=== PATIENT | male | born 1995 | race Caucasian/White ===

== ENCOUNTER 2016-10-02 18:01 | Emergency (ER) | payer OTHER ==
[2016-10-02] MEDS ORDERED: ONDANSETRON ODT 4 MG TABLET TL STA (18:40)
[2016-10-02] MEDS ORDERED: ONDANSETRON ODT 4 MG TABLET ONE (19:00)
[2016-10-02] MEDS ORDERED: ONDANSETRON ODT 4 MG Prepack 2 TL STA (19:30)
[2016-10-02] MEDS ORDERED: ONDANSETRON ODT 4 MG Prepack 2 TL ONE (19:37)
== END 2016-10-02 19:45 | disposition home or self-care (01) ==
DX: R11.2 Nausea with vomiting, unspecified (principal); F17.200 Nicotine dependence, unspecified, uncomplicated
CPT/HCPCS: 99283; Q0162

== ENCOUNTER 2017-08-14 20:04 | Emergency (ER) | payer OTHER ==
[2017-08-14 20:12] VITALS: BP 133/43
--- NOTE | 2017-08-14 20:59 | ED Physician Documentation ---
History of Present Illness - Stated complaint Stated Complaint: THUMB LAC - Chief complaint Chief Complaint: Laceration - History obtained from History obtained from: Patient (pt is here for evaluation of a laceration to his right thumb. he states that he cut it with a knife while opening a gift. states that he cleaned it with iodine at home.) Review of Systems Constitutional: denies: Fever, Chills Skin: reports: Laceration (s) Musculoskeletal: denies: Back pain, Extremity pain, Joint pain, Extremity swelling, Joint swelling Neurologic: denies: Numbness PD PAST MEDICAL HISTORY - Past Medical History Neuro: Other Psych: Depression Other Past Medical History: narcolepsy - Past Surgical History Past Surgical History: No - Present Medications Home Medications: Ambulatory Orders Medication Instructions Recorded Confirmed Citalopram Hydrobromide [Celexa] 20 mg PO DAILY 08/14/17 08/14/17 Methylphenidate HCl [Ritalin] 20 mg PO BID 08/14/17 08/14/17 traZODone [Desyrel] 50 mg PO DAILY 08/14/17 08/14/17 - Allergies Allergies/Adverse Reactions: Allergies Allergy/AdvReac Type Severity Reaction Status Date / Time No Known Drug Allergies Allergy Verified 08/14/17 20:12 - Social History Does the pt smoke?: Yes Smoking Status: Current every day smoker Does the pt drink ETOH?: Yes Does the pt have substance abuse?: No - Immunizations Immunizations are current?: Yes PD ED PE NORMAL - Vitals Vital signs reviewed: Yes - General General: Alert and oriented X 3, No acute distress, Well developed/nourished - HEENT HEENT: Atraumatic, Moist mucous membranes - Cardiac Cardiac: Strong equal pulses (radial) - Derm Derm: Other (1cm laceration to the radial aspect of the pad of his right thumb) - Extremities Extremities: Other (laceration to the pad of his right thumb) - Neuro Neuro: Other (sensation intact to light touch to the right UE and hand) Results - Vitals Vitals: Vital Signs - 24 hr 08/14/17 20:09 Temperature 36.8 C Heart Rate 81 Respiratory 16 Rate Blood Pressure 133/43 H O2 Saturation 97 Oxygen O2 Source Room air Procedures - Laceration (location) thumb Length in cm: 1 Wound type: Linear Neurovascular status: Sensory intact, Motor intact, Vascular intact Wound Preparation: Irrigated copiously NS Skin layer closure: Dermabond, Steri strips Other: Patient tolerated well, No complications, Neurovascular intact, Dressing applied, Tetanus UTD Complexity: Simple PD MEDICAL DECISION MAKING - ED course Complexity details: d/w patient ED course: thumb laceration. Td UTD. wound cleaned and dermabond and steristrips placed. pt given care instructions and return precautions. Departure - Departure Disposition: 01 Home, Self Care Clinical Impression: Laceration Condition: Good Instructions: ED Laceration Hand, ED Laceration Ext Skin Glue Follow-Up: HOLLI BRINK [Primary Care Provider] - Comments: keep the bandage on for the next 24 hours then let the the glue and strips come off on their own. Do not soak your hand in anything until the skin is healed. return to the ER for any new or worsening symptoms.
== END 2017-08-14 21:02 | disposition home or self-care (01) ==
LOC: ED 20:04
DX: S61.011A Laceration without foreign body of right thumb without damage to nail, initial encounter (principal); W26.0XXA Contact with knife, initial encounter; G47.419 Narcolepsy without cataplexy; F17.200 Nicotine dependence, unspecified, uncomplicated
CPT/HCPCS: 12001; 99282; 99283